=== PATIENT | female | born 1975 | race Caucasian/White ===

== ENCOUNTER 2016-08-23 08:48 | Emergency (ER) | payer MEDICAID ==
[~2016-08-23] VITALS: Ht 167.6 cm; Wt 91.0 kg
[~2016-08-23 08:48] MED LIST: ALBU1AER INH; ALBU6.7H INH; BENZ100 PO; PRED20 PO
[2016-08-23] MEDS ORDERED: LORazepam 2 MG/ML VIAL IM ONE (09:00)
[2016-08-23 09:04] VITALS: BP 133/58; PULSE 85; RESP 27; TEMP 99.6
--- NOTE | 2016-08-23 09:09 | PD ---
HPI Chief Complaint: Anxiety Time Seen by Provider: 08:51 Travel History International Travel<30 days: No Contact w/Intl Traveler<30days: No Traveled to known affect area: No History of Present Illness HPI This is a 40-year-old female who presents to the emergency department reporting that she smoked crack cocaine last night and ever since then has had involuntary movements in her arms and legs, constant, severe. She also says she feels very hungry and intermittently hot and cold. She doesn't have any complaints aside from the side effects of the cocaine. PFSH Past Medical History Asthma: Yes Bipolar Disorder: Yes Depression: Yes Cerebrovascular Accident: No Diabetes: No Diminished Hearing: No Psychiatric: Yes Immunizations Current: No Myocardial Infarction: No Schizophrenia: Yes Seizures: Yes ?: Not LMP: now : 10 Para: 1 Miscarriage: 9 : 0 Tubal Ligation: Yes Past Surgical History Abdominal Surgery: Yes (C SECTION) Section: Yes (X1) Gynecologic Surgery: Yes (C SECTION) Tonsillectomy: Yes (1979) Social History Alcohol Use: No Tobacco Use: Yes (07/02 PPD) Substance Use: No (COCAINE-LAST USED JUN 24) Allergies-Medications (Allergen,Severity, Reaction): Coded Allergies: Aspirin (Verified Allergy, Severe, HIVES, 08/23/16) Dilantin (Verified Allergy, Severe, 08/23/16) Penicillin (Verified Allergy, Severe, HIVES, 08/23/16) Reported Meds & Prescriptions Reported Meds & Active Scripts Active Deltasone (Prednisone) 20 Mg Tab 20 Mg PO DAILY 5 Days Proair Hfa (Albuterol Sulfate) 8.5 Gm Aero 2 Puff INH Q4-6H PRN * SHAKE WELL BEFORE USE * Tessalon Perles (Benzonatate) 100 Mg Cap 100 Mg PO TID PRN Proventil Hfa (Albuterol Sulfate) 6.7 Gm Aero 2 Puff INH Q4-6H PRN * SHAKE WELL BEFORE USE * Review of Systems Except as stated in HPI: all other systems reviewed are Neg Physical Exam Narrative GENERAL: Disheveled SKIN: Warm and dry. HEAD: Atraumatic. Normocephalic. EYES: Pupils equal and round. No injection or drainage. ENT: Moist mucous membranes NECK: Trachea midline. CARDIOVASCULAR: Regular rate and rhythm. No murmur appreciated. RESPIRATORY: Clear to auscultation. Breath sounds equal bilaterally. GASTROINTESTINAL: Abdomen soft, non-tender, nondistended. MUSCULOSKELETAL: No obvious deformities. NEUROLOGICAL: Awake and alert, choreoathetoid movements of the upper and lower extremities PSYCHIATRIC: Intermittently tearful Data Data Last Documented VS Vital Signs Date Time Temp Pulse Resp B/P Pulse Ox O2 Delivery O2 Flow Rate FiO2 08/23/16 09:04 99.6 85 27 133/58 Orders Lorazepam Inj (Ativan Inj) (08/23/16 09:00) Diet Regular Basic (08/23/16 Breakfast) [facility] Medical Decision Making Medical Screen Exam Complete: Yes Emergency Medical Condition: Yes Differential Diagnosis Cocaine-induced choreoathetoid movements, cocaine intoxication, alcohol intoxication, delirium Narrative Course This is a 40-year-old female who presents to the emergency department with involuntary movements following using cocaine last night. She was placed on a monitor. She was very well-appearing. She is displaying choreoathetoid movements which are likely a side effect of the cocaine. She is given a milligram of Ativan. She feels much better and wants to leave. She was discharged home. Diagnosis Primary Impression: Choreoathetoid limb movements Additional Impression: Cocaine abuse Patient Instructions: General Instructions Additional Instructions: Follow up with Ced Jaime in regards to psychiatric or substance related issues at: [address] [place], [place] [id number] Med/Other Pt SpecificInfo: No Change to Meds Disposition: 01 DISCHARGE HOME Condition: Stable Ludy Bernard MD Aug 23, 2016 09:09
== END 2016-08-23 10:40 | disposition home or self-care (01) ==
LOC: NEPC 08:48
DX: G25.89 Other specified extrapyramidal and movement disorders (principal); F14.10 Cocaine abuse, uncomplicated; F31.9 Bipolar disorder, unspecified; F20.9 Schizophrenia, unspecified; R56.9 Unspecified convulsions; F17.210 Nicotine dependence, cigarettes, uncomplicated
CPT/HCPCS: 96372; 99283; J2060

== ENCOUNTER 2016-09-21 00:33 | Emergency (ER) | payer MEDICAID, OTHER ==
[~2016-09-21] VITALS: Ht 167.6 cm; Wt 105.0 kg
[2016-09-21 00:37] VITALS: BP 139/85; PULSE 91; RESP 18; TEMP 98.7; O2SAT 97
[2016-09-21] MEDS ORDERED: SODIUM CHLOR 0.9% 1000 ML INJ 1,000 ML IV SCH (00:39)
[2016-09-21 00:42] VITALS: O2SAT 97
[2016-09-21] MEDS ORDERED: SODIUM CHLORIDE 0.9% FLUSH 10 ML FLUSH IVF PRN (00:45)
[2016-09-21 00:58] LABS: AUTOMATED NEUTROPHIL # 4.6 TH/MM3 (1.8-7.7); BASOPHIL # 0.1 TH/MM3 (0-0.2); BASOPHIL % 0.8 % (0.0-2.0); EOSINOPHIL # 0.2 TH/MM3 (0-0.4); EOSINOPHIL % 2.1 % (0.0-4.0); HEMATOCRIT 36.3 % (35.0-46.0); HEMO FLAGS DIFF FINAL; LYMPH % 31.6 % (9.0-44.0); LYMPHOCYTE # 2.5 TH/MM3 (1.0-4.8); MEAN CELL VOLUME 91.2 FL (80.0-100.0); MEAN CORPUSCULAR HEMOGLOBIN 31.3 PG (27.0-34.0); MEAN CORPUSCULAR HGB CONC 34.3 % (32.0-36.0); MONO % 7.6 % (0.0-8.0); NEUT % 57.9 % (16.0-70.0); PLATELET COUNT 313 TH/MM3 (150-450); RED BLOOD COUNT 3.98 MIL/MM3 (4.00-5.30); RED CELL DISTRIBUTION WIDTH 14.5 % (11.6-17.2); WHITE BLOOD COUNT 7.9 TH/MM3 (4.0-11.0)
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
[2016-09-21 01:16] LABS: ALT (GPT) 21 U/L (10-53); ANION GAP 10 MEQ/L (5-15); AST (GOT) 25 U/L (15-37); BICARBONATE 21.4 MEQ/L (21.0-32.0); BLOOD UREA NITROGEN 21 MG/DL (7-18); CHLORIDE 110 MEQ/L (98-107); GLOMERULAR FILTRATION RATE 75 ML/MIN (>89); POTASSIUM 3.6 MEQ/L (3.5-5.1); SODIUM (NA) 141 MEQ/L (136-145)
[2016-09-21 01:18] LABS: ALKALINE PHOSPHATASE 43 U/L (45-117); TOTAL BILIRUBIN ADULT 0.2 MG/DL (0.2-1.0)
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
[2016-09-21 02:37] LABS: BACTERIA, URINE MANY /hpf; BLOOD, URINE MOD (NEG); COMMENT (UR) CATH-CULTURE IND; CULTURE IF INDICATED CATH CULTURE IND; GLUCOSE,URINE NEG (NEG); KETONE, URINE NEG (NEG); MUCUS URINE FEW /lpf (OCC); NITRITE,URINE NEG (NEG); PH, URINE 5.5 (5.0-8.5); SQUAMOUS EPITHELIAL CELL URINE 2 /hpf (0-5); URINE COLOR LIGHT-YELLOW (YELLW/STRAW)
[2016-09-21 02:42] LABS: AMPHETAMINE, URINE NEG (NEG); BARBITURATES, URINE NEG (NEG); COCAINE, URINE POS (NEG)
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
[2016-09-21] MEDS ORDERED: TETANUS/DIPHTHERIA TOXOID ADULT 0.5 ML VIAL IM ONE (02:45)
--- NOTE | 2016-09-21 04:02 | PD ---
Physical Exam Date Seen by Provider: Sep 21, 2016 Time Seen by Provider: 04:00 Narrative Skin: Patient has a irregular laceration to the posterior occiput. The laceration measures 5 cm. No foreign body. No step-off. Data Data Last Documented VS Vital Signs Date Time Temp Pulse Resp B/P Pulse Ox O2 Delivery O2 Flow Rate FiO2 09/21/16 00:42 97 Room Air 09/21/16 00:37 98.7 91 18 139/85 Orders Complete Blood Count With Diff (09/21/16 00:39) Comprehensive Metabolic Panel (09/21/16 00:39) Urinalysis - C+S If Indicated (09/21/16 00:39) Ct Brain W/O Iv Contrast(Rout) (09/21/16 00:39) Blood Glucose (09/21/16 00:39) Ecg Monitoring (09/21/16 00:39) Iv Access Insert/Monitor (09/21/16 00:39) Oximetry (09/21/16 00:39) Sodium Chloride 0.9% Flush (Ns Flush) (09/21/16 00:45) Sodium Chlor 0.9% 1000 Ml Inj (Ns 1000 M (09/21/16 00:39) Drug Screen, Random Urine (09/21/16 00:39) Alcohol (Ethanol) (09/21/16 00:39) Ct Cerv Spine W/O Contrast (09/21/16 00:39) Urine Culture (09/21/16 02:10) Wound Care (09/21/16 02:45) Tetanus/Diphtheria Tox Adult (Tetanus/Di (09/21/16 02:45) Labs Laboratory Tests Test 09/21/16 09/21/16 00:46 02:10 White Blood Count 7.9 TH/MM3 Red Blood Count 3.98 MIL/MM3 Hemoglobin 12.5 GM/DL Hematocrit 36.3 % Mean Corpuscular Volume 91.2 FL Mean Corpuscular Hemoglobin 31.3 PG Mean Corpuscular Hemoglobin 34.3 % Concent Red Cell Distribution Width 14.5 % Platelet Count 313 TH/MM3 Mean Platelet Volume 7.8 FL Neutrophils (%) (Auto) 57.9 % Lymphocytes (%) (Auto) 31.6 % Monocytes (%) (Auto) 7.6 % Eosinophils (%) (Auto) 2.1 % Basophils (%) (Auto) 0.8 % Neutrophils # (Auto) 4.6 TH/MM3 Lymphocytes # (Auto) 2.5 TH/MM3 Monocytes # (Auto) 0.6 TH/MM3 Eosinophils # (Auto) 0.2 TH/MM3 Basophils # (Auto) 0.1 TH/MM3 CBC Comment DIFF FINAL Differential Comment Sodium Level 141 MEQ/L Potassium Level 3.6 MEQ/L Chloride Level 110 MEQ/L Carbon Dioxide Level 21.4 MEQ/L Anion Gap 10 MEQ/L Blood Urea Nitrogen 21 MG/DL Creatinine 0.83 MG/DL Estimat Glomerular Filtration 75 ML/MIN Rate Random Glucose 97 MG/DL Calcium Level 8.3 MG/DL Total Bilirubin 0.2 MG/DL Aspartate Amino Transf 25 U/L (AST/SGOT) Alanine Aminotransferase 21 U/L (ALT/SGPT) Alkaline Phosphatase 43 U/L Total Protein 7.1 GM/DL Albumin 3.4 GM/DL Ethyl Alcohol Level LESS THAN 3 MG/DL Urine Color LIGHT-YELLOW Urine Turbidity CLEAR Urine pH 5.5 Urine Specific [place] 1.011 Urine Protein TRACE mg/dL Urine Glucose (UA) NEG mg/dL Urine Ketones NEG mg/dL Urine Occult Blood MOD Urine Nitrite NEG Urine Bilirubin NEG Urine Urobilinogen LESS THAN 2.0 MG/DL Urine Leukocyte Esterase SMALL Urine RBC 4 /hpf Urine WBC 27 /hpf Urine Squamous Epithelial 2 /hpf Cells Urine Bacteria MANY /hpf Urine Mucus FEW /lpf Microscopic Urinalysis Comment CATH-CULTURE IND Urine Opiates Screen NEG Urine Barbiturates Screen NEG Urine Amphetamines Screen NEG Urine Benzodiazepines Screen NEG Urine Cocaine Screen POS Urine Cannabinoids Screen NEG MDM Medical Record Reviewed: Yes Supervised Visit with YARITZA: Yes Interpretation(s) Last [address] 09/21/1638 Signed Impressions: Service Date/Time: Wednesday, September 21, 2016 00:50 - CONCLUSION: 1. Right parietal soft tissue hematoma near the vertex. 2. No acute intracranial abnormality. 3. Motion degraded exam. Miguel Angel Vazquez Jr., MD Cervical Spine CT 09/21/1638 Signed Impressions: Service Date/Time: Wednesday, September 21, 2016 00:50 - CONCLUSION: 1. No acute abnormality. 2. Mild central bulge at C4-C5. Miguel Angel Vazquez Jr., MD Differential Diagnosis MDM: High Differential diagnoses: Fracture, sprain, strain, dislocation, contusion, neurovascular injury Narrative Course Patient's scalp lacerations closed with perri Procedures Procedure Narrative LACERATION LOCATION: Posterior occiput LENGTH: 5 cm NUMBER OF STITCHES/PERRI: 8 REPAIR: The area of the laceration was prepped with Betadine and sterilely draped. The laceration was infiltrated with 1% lidocaine with epinephrine. The wound was copiously irrigated and explored without evidence of foreign body , tendon injury or neurovascular injury. The wound was closed using perri. This was a simple single layer repair. A sterile dressing was applied. The patient was advised to keep the dressing clean and dry. Patient tolerated the procedure well. Diagnosis Primary Impression: Hematoma of scalp Additional Impressions: Cocaine abuse Occipital scalp laceration Patient Instructions: General Instructions, Cocaine Abuse (ED) Departure Forms: Tests/Procedures Additional Instruction: Discontinue cocaine, follow-up with [facility] if he needed help. The perri come out in approximately 10 days. If you have any problems, please return to emergency department. Rest. Elevation. Tylenol and Advil for pain. Daily wound care with soap, water, Neosporin. Sutures out in 10 days. Return to the ER if any problems. Med/Other Pt SpecificInfo: No Meds Exist/No RX given Scripts No Active Prescriptions or Reported Meds Disposition: 01 DISCHARGE HOME Condition: Stable Lacho Ellis Sep 21, 2016 04:02
== END 2016-09-21 04:41 | disposition home or self-care (01) ==
LOC: NEPC 00:33
DX: S01.01XA Laceration without foreign body of scalp, initial encounter (principal); S00.03XA Contusion of scalp, initial encounter; F14.10 Cocaine abuse, uncomplicated; F17.200 Nicotine dependence, unspecified, uncomplicated; R82.99 Other abnormal findings in urine; B96.20 Unspecified Escherichia coli [E. coli] as the cause of diseases classified elsewhere; V19.49XA Pedal cycle driver injured in collision with other motor vehicles in traffic accident, initial encounter; Y93.55 Activity, bike riding; Y92.488 Other paved roadways as the place of occurrence of the external cause; Z23 Encounter for immunization; Z87.09 Personal history of other diseases of the respiratory system; Z86.59 Personal history of other mental and behavioral disorders; Z86.69 Personal history of other diseases of the nervous system and sense organs
CPT/HCPCS: 12002; 70450; 72125; 80053; 80307; 81001; 85025; 87077; 87086; 87186; 90471; 90714; 96360; 99285; J7030

== ENCOUNTER 2016-09-30 20:01 | Emergency (ER) | payer MEDICAID ==
[~2016-09-30] VITALS: Ht 167.6 cm; Wt 60.0 kg
[2016-09-30 20:02] VITALS: BP 114/53; PULSE 78; RESP 16; TEMP 98; O2SAT 95
[2016-09-30] MEDS ORDERED: CEPH-460 PO (20:41)
--- NOTE | 2016-09-30 20:43 | PD ---
HPI Chief Complaint: Wound/Suture/Staple Re-Check Time Seen by Provider: 20:41 Travel History International Travel<30 days: No Contact w/Intl Traveler<30days: No Traveled to known affect area: No History of Present Illness HPI 40-year-old white female presents to emergency department for a staple removal from a laceration 10 days ago. She denies any medical complaints. PFSH Past Medical History Asthma: Yes Bipolar Disorder: Yes Depression: Yes Cerebrovascular Accident: No Diabetes: No Diminished Hearing: No Psychiatric: Yes Immunizations Current: No Myocardial Infarction: No Schizophrenia: Yes Seizures: Yes ?: Not : 10 Para: 1 Miscarriage: 9 : 0 Tubal Ligation: Yes Past Surgical History Abdominal Surgery: Yes (C SECTION) Section: Yes (X1) Gynecologic Surgery: Yes (C SECTION) Tonsillectomy: Yes (1979) Social History Alcohol Use: No Tobacco Use: Yes Substance Use: No Allergies-Medications (Allergen,Severity, Reaction): Coded Allergies: Aspirin (Verified Allergy, Severe, HIVES, 09/30/16) Dilantin (Verified Allergy, Severe, 09/30/16) Penicillin (Verified Allergy, Severe, HIVES, 09/30/16) Reported Meds & Prescriptions Reported Meds & Active Scripts Active No Active Prescriptions or Reported Medications Review of Systems Except as stated in HPI: all other systems reviewed are Neg Physical Exam Narrative GENERAL: This is a well-nourished, well-developed patient, in no apparent distress. SKIN: No rashes, ecchymoses or lesions. Warm and dry. Patient scalp laceration has perri intact. HEAD: Atraumatic. Normocephalic. EYES: PERRL, EOMI, no discharge or injection. No scleral icterus. EARS: Clear NOSE: Nasal turbinates appear normal. THROAT: Mucosa pink and moist. Airway patent. NECK: Trachea midline. supple, moves head freely. LUNGS: Clear to auscultation. CV: Regular in rhythm. ABDOMEN: Soft nontender. EXT: No clubbing cyanosis or edema. Data Data Last Documented VS Vital Signs Date Time Temp Pulse Resp B/P Pulse Ox O2 Delivery O2 Flow Rate FiO2 09/30/16 20:02 98.0 78 16 114/53 95 Room Air Orders Cephalexin (Keflex) (09/30/16 20:45) Naproxen (Naprosyn) (09/30/16 20:45) [facility] Medical Decision Making Medical Screen Exam Complete: Yes Emergency Medical Condition: Yes Medical Record Reviewed: Yes Differential Diagnosis MDM: High Differential diagnoses: Fracture, sprain, strain, dislocation, contusion, neurovascular injury Narrative Course Patient Jay were removed. There is a small amount of discharge from the staple holes. She'll be placed on Keflex. Patient given Keflex 500 mg by mouth and Naprosyn 500 mg by mouth for pain. Diagnosis Primary Impression: Removal of staple Patient Instructions: General Instructions Additional Instructions: Rest. Elevation. Tylenol and Advil for pain. Daily wound care with soap, water, Neosporin. Keflex. Return to the ER if any problems. Med/Other Pt SpecificInfo: Prescription(s) given Scripts Cephalexin (Keflex)500 Mg [id number] Mg PO Q6H #28 CAP Prov:Tigist Lane MD 09/30/16 Disposition: 01 DISCHARGE HOME Condition: Stable Lacho Ellis Sep 30, 2016 20:43
[2016-09-30] MEDS ORDERED: CEPHALEXIN MONOHYDRATE 500 MG CAP PO ONE (20:45)
[2016-09-30] MEDS ORDERED: NAPROXEN 500 MG TAB PO ONE (20:45)
== END 2016-09-30 20:52 | disposition home or self-care (01) ==
LOC: NETRI 20:01
DX: Z48.02 Encounter for removal of sutures (principal); Z72.0 Tobacco use
CPT/HCPCS: 99281

== ENCOUNTER 2017-02-03 23:39 | Emergency (ER) | payer MEDICAID ==
[~2017-02-03 23:39] MED LIST changes: -ALBU1AER INH; -ALBU6.7H INH; -BENZ100 PO; +CEPH-460 PO; -PRED20 PO
[2017-02-03 23:43] VITALS: BP_SYST 110; BP_DIAS 20; BP_DIAS 70; PULSE 88; RESP 16; TEMP 98.2; O2SAT 99
[2017-02-04] MEDS ORDERED: diphenhydrAMINE HCL 50 MG/ML VIAL IM ONE (01:45)
[2017-02-04] MEDS ORDERED: PERM5CRE TOPICAL (01:46)
--- NOTE | 2017-02-04 01:49 | PD ---
HPI Chief Complaint: Skin Problem Time Seen by Provider: 01:40 Travel History International Travel<30 days: No Contact w/Intl Traveler<30days: No Traveled to known affect area: No History of Present Illness HPI This is a 41-year-old female presents for evaluation of a rash. Symptoms started 4 days ago. The rash is a very pruritic rash that is so in extremities. She denies any new medications, creams, lotions, detergents, recent travel, any recent change in living environment. She denies any new pets in her home. She denies any sick contacts. She has never had this sort of rash before. She has no other complaints at this time. PFSH Past Medical History ADHD: Yes Asthma: Yes Bipolar Disorder: Yes Depression: Yes Cerebrovascular Accident: No Diabetes: No Diminished Hearing: No Psychiatric: Yes Immunizations Current: Yes Myocardial Infarction: No Schizophrenia: Yes Seizures: Yes ?: Not : 10 Para: 1 Miscarriage: 9 : 0 Tubal Ligation: Yes Past Surgical History Abdominal Surgery: Yes (C SECTION) Section: Yes (X1) Gynecologic Surgery: Yes (C SECTION) Tonsillectomy: Yes (1979) Social History Alcohol Use: No Tobacco Use: Yes Substance Use: No Allergies-Medications (Allergen,Severity, Reaction): Coded Allergies: Aspirin (Verified Allergy, Severe, HIVES, 02/04/17) Dilantin (Verified Allergy, Severe, 02/04/17) Penicillin (Verified Allergy, Severe, HIVES, 02/04/17) Reported Meds & Prescriptions Reported Meds & Active Scripts Active Permethrin Topical 5% (Permethrin) 5% Cream 1 Applic TOPICAL ONCE Keflex (Cephalexin) 500 Mg Cap 500 Mg PO Q6H Review of Systems Except as stated in HPI: all other systems reviewed are Neg Physical Exam Narrative GENERAL: Well-developed well-nourished female in no acute distress SKIN: Warm and dry. Widespread papular rash noted. No vesicles, pustules, petechiae, hives. HEAD: Atraumatic. Normocephalic. EYES: Pupils equal and round. No scleral icterus. No injection or drainage. ENT: No nasal bleeding or discharge. Mucous membranes pink and moist. NECK: Trachea midline. No JVD. CARDIOVASCULAR: Regular rate and rhythm. No murmur appreciated. RESPIRATORY: No accessory muscle use. Clear to auscultation. Breath sounds equal bilaterally. GASTROINTESTINAL: Abdomen soft, non-tender, nondistended. Hepatic and splenic margins not palpable. Data Data Last Documented VS Vital Signs Date Time Temp Pulse Resp B/P Pulse Ox O2 Delivery O2 Flow Rate FiO2 02/03/17 23:43 98.2 88 16 110/70 99 Room Air Orders Diphenhydramine Inj (Benadryl Inj) (02/04/17 01:45) MDM Medical Decision Making Medical Screen Exam Complete: Yes Emergency Medical Condition: Yes Medical Record Reviewed: Yes Differential Diagnosis Scabies, contact dermatitis, fixed drug eruption, viral exanthem Narrative Course 31-year-old female presents with a widespread pruritic rash. She has a widespread papular rash which I suspect is scabies. She will be given a dose of Benadryl here and discharged with permethrin. Diagnosis Primary Impression: Scabies Additional Instructions: Medication as prescribed. Benadryl for itching. Return for any emergent medical conditions. Med/Other Pt SpecificInfo: Prescription(s) given Scripts Permethrin Topical 5% 5% Cream1 Applic TOPICAL ONCE #1 TUBE Ref 1 Prov:Tigist Lane MD 02/04/17 Disposition: 01 DISCHARGE HOME Condition: Stable Estiven Landaverde Feb 04, 2017 01:49
== END 2017-02-04 02:15 | disposition home or self-care (01) ==
LOC: NEPD 23:39
DX: B86 Scabies (principal)
CPT/HCPCS: 96372; 99284; J1200

== ENCOUNTER 2017-03-10 14:10 | Emergency (ER) | payer MEDICAID ==
[~2017-03-10] VITALS: Ht 167.6 cm; Wt 90.0 kg
[~2017-03-10 14:10] MED LIST changes: +PERM5CRE TOPICAL
[2017-03-10 14:14] VITALS: BP 112/64; PULSE 74; RESP 16; TEMP 98.4; O2SAT 99
--- NOTE | 2017-03-10 14:29 | PD ---
HPI Chief Complaint: Injury Time Seen by Provider: 14:26 Travel History International Travel<30 days: No Contact w/Intl Traveler<30days: No Traveled to known affect area: No History of Present Illness HPI 41-year-old female presents to emergency department via [facility] with complaint of right hand and wrist pain after punching a wall last night. Denies paresthesias , loss of sensation to the affected hand. Reports decreased range of motion secondary to pain. Has not taken any medications or tried any treatments to alleviate her symptoms. Symptoms are mild in severity. Allergies to aspirin, penicillin, phenytoin. Has no medical complaints. No other modifying factors or associated signs and symptoms. PFSH Past Medical History ADHD: Yes Asthma: Yes Bipolar Disorder: Yes Depression: Yes Cerebrovascular Accident: No Diabetes: No Diminished Hearing: No Psychiatric: Yes Immunizations Current: Yes Myocardial Infarction: No Schizophrenia: Yes Seizures: Yes ?: Not LMP: 02/12/17 : 10 Para: 1 Miscarriage: 9 : 0 Tubal Ligation: Yes Past Surgical History Abdominal Surgery: Yes (C SECTION) Section: Yes (X1) Gynecologic Surgery: Yes (C SECTION) Tonsillectomy: Yes (1979) Social History Alcohol Use: No Tobacco Use: Yes Substance Use: No Allergies-Medications (Allergen,Severity, Reaction): Coded Allergies: aspirin (Unverified Allergy, Severe, HIVES, 02/12/17) penicillin G (Unverified Allergy, Severe, HIVES, 02/12/17) phenytoin (Unverified Allergy, Severe, 02/12/17) Reported Meds & Prescriptions Reported Meds & Active Scripts Active Permethrin Topical 5% (Permethrin) 5% Cream 1 Applic TOPICAL ONCE Keflex (Cephalexin) 500 Mg Cap 500 Mg PO Q6H Review of Systems Except as stated in HPI: all other systems reviewed are Neg Physical Exam Narrative GENERAL: Well-nourished, well-developed patient, in no acute distress SKIN: Warm and dry. HEAD: Atraumatic. Normocephalic. EYES: Pupils equal and round. No scleral icterus. No injection or drainage. ENT: Mucosa pink and moist. Airway patent. NECK: Trachea midline. CARDIOVASCULAR: Regular rate. RESPIRATORY: No accessory muscle use. GASTROINTESTINAL: Rounded. MUSCULOSKELETAL: Right hand and wrist with minimal edema; without erythema, ecchymosis; red scruggs noted to the second and third MCP joints without break in skin; unable to specify where the patient has tenderness to the hand as her pain is out of proportion to physical exam; fingers with full range of motion; sensory intact; no obvious deformity. Right wrist with tenderness on palpation ; no obvious deformity. Right upper extremities supple and non-tense 2+ radial pulse and sensory intact and without erythema or edema. No obvious deformities. No clubbing. No cyanosis. NEUROLOGICAL: Awake and alert. Oriented 3. No obvious cranial nerve deficits. Motor grossly within normal limits. Normal speech. PSYCHIATRIC: Appropriate mood and affect; insight and judgment normal. Data Data Last Documented VS Vital Signs Date Time Temp Pulse Resp B/P (MAP) Pulse Ox O2 Delivery O2 Flow Rate FiO2 03/10/17 14:14 98.4 74 16 112/64 (80) 99 Orders Orders Hand, Complete ([id number]) (03/10/17 14:25) Wrist, Complete ([id number]) (03/10/17 14:25) Acetaminophen (Tylenol) (03/10/17 14:30) Splint Or Brace Apply/Monitor (03/10/17 15:29) MDM Medical Decision Making Medical Screen Exam Complete: Yes Emergency Medical Condition: Yes Medical Record Reviewed: Yes Differential Diagnosis Sprain, fracture, injury Narrative Course 41-year-old female with right wrist and hand injury. Tylenol administered in the ER. Right hand and wrist x-ray ordered. 1514: Right wrist x-ray concludes: No evidence of acute fracture or significant soft tissue swelling. 1528: Right hand x-ray with no acute findings. Patrice bandage provided for support. Instructed patient to take Tylenol or ibuprofen as directed and as needed for pain and inflammation. Discussed RICE. Instructed patient to follow up with primary care provider. Patient verbalizes understanding and agreement with treatment plan. Patient is medically cleared and stable for discharge. Discussed reasons to return to the emergency department. Patient agrees with treatment plan. The patients vital signs are stable and the patient is stable for outpatient follow-up and treatment. Patient discharged home, stable and in no acute distress. Diagnosis Primary Impression: Hand injury Qualified Codes: S69.91XA - Unspecified injury of right wrist, hand and finger (s), initial encounter Additional Impression: Wrist injury Qualified Codes: S69.91XA - Unspecified injury of right wrist, hand and finger (s), initial encounter Referrals: Primary Care Physician Patient Instructions: General Instructions, Hand Sprain (ED), Wrist Sprain (ED) Additional Instructions: Tylenol or ibuprofen as directed and as needed to reduce pain Rest, ice, compress, and elevate extremity to decrease pain and inflammation Patrice wrap for support Splint for support Avoid aggravating activity; increase activity as tolerated Follow-up with primary care provider Return to the emergency department immediately with worsening symptoms Med/Other Pt SpecificInfo: No Meds Exist/No RX given Disposition: 01 DISCHARGE HOME Condition: Stable Valeria Rubin Mar 10, 2017 14:29
[2017-03-10] MEDS ORDERED: ACETAMINOPHEN 325 MG TAB PO ONE (14:30)
--- NOTE | 2017-03-10 15:11 | RADRPT ---
EXAM DATE/TIME: 03/10/2017 14:49 [facility] COMPARISON: No previous studies available for comparison. INDICATIONS : Right wrist pain, punched a wall. MEDICAL HISTORY : None. SURGICAL HISTORY : None. ENCOUNTER: Initial ACUITY: 1 day PAIN SCORE: 9/10 LOCATION: Right wrist FINDINGS: Three view examination of the right wrist demonstrates no soft tissue swelling, dislocation, or fract ure. The carpal bones are in normal alignment. The joint spaces are maintained. Bony mineralizatio n is normal. CONCLUSION: No evidence of acute fracture or significant soft tissue swelling. Tunde Faith MD on March 10, 2017 at 15:09 Board Certified Radiologist. This report was verified electronically.
--- NOTE | 2017-03-10 15:18 | RADRPT ---
EXAM DATE/TIME: 03/10/2017 14:49 [facility] COMPARISON: No previous studies available for comparison. INDICATIONS : Right hand pain, punched a wall. MEDICAL HISTORY : None. SURGICAL HISTORY : None. ENCOUNTER: Initial ACUITY: 1 day PAIN SCORE: 8/10 LOCATION: Right hand FINDINGS: Three view examination of the right hand demonstrates no dislocation, or fracture. Soft tissue swelli ng is seen along the dorsum of the metacarpophalangeal joints. The carpal bones appear intact. The interphalangeal and metacarpophalangeal joints are intact. Bony mineralization is normal. CONCLUSION: Soft tissue swelling without evidence of acute fracture or dislocation. Tunde Faith MD on March 10, 2017 at 15:15 Board Certified Radiologist. This report was verified electronically.
== END 2017-03-10 15:38 | disposition home or self-care (01) ==
LOC: NEPK 14:10
DX: S69.91XA Unspecified injury of right wrist, hand and finger(s), initial encounter (principal); W22.01XA Walked into wall, initial encounter
CPT/HCPCS: 73110; 73130; 99283; L3908